=== PATIENT | male | born 1975 | race Caucasian/White ===

== ENCOUNTER 2021-09-10 07:08 | Observation (INO) | payer BC ==
[~2021-09-10] VITALS: Ht 182.9 cm; Wt 131.5 kg
[2021-09-10] MEDS ORDERED: IOPAMIDOL 370 MG/ML 100 ML INFUS..BTL INJ ONE (07:55)
[2021-09-10] MEDS ORDERED: ONDANSETRON HCL INJ 2MG/ML 2ML 2 MG/ML VIAL IV PRN ×2 (09:30→12:30)
[2021-09-10] MEDS ORDERED: ASPIRIN 325 MG TAB PO ONE (09:30)
[2021-09-10] MEDS ORDERED: ASPIRIN 81 MG CHEW TAB PO ONE (09:30)
[2021-09-10] MEDS ORDERED: ASPIRIN 325 MG TAB ONE (10:19)
[2021-09-10 12:10] VITALS: BP 139/87
[2021-09-10 12:18] VITALS: BP 139/87
[2021-09-10] MEDS ORDERED: DOCUSATE SODIUM 100 MG CAP PO PRN (12:30)
[2021-09-10] MEDS ORDERED: DIPHENHYDRAMINE HCL 25 MG CAP PO PRN (12:30)
[2021-09-10] MEDS ORDERED: DEXTROSE 50% SYRINGE 50 ML IV PRN (12:30)
[2021-09-10] MEDS ORDERED: SIMETHICONE 80 MG CHEW PO PRN (12:30)
[2021-09-10] MEDS ORDERED: BENZONATATE 100 MG CAP PO PRN (12:30)
[2021-09-10] MEDS ORDERED: POTASSIUM CHLORIDE 20 MEQ TAB CR PO PRN (12:30)
[2021-09-10] MEDS ORDERED: HYDRALAZINE HCL 20 MG/ML VIAL IV PRN (12:30)
[2021-09-10] MEDS ORDERED: ACETAMINOPHEN 325 MG TAB PO PRN (12:30)
[2021-09-10] MEDS ORDERED: LIDOCAINE 4% PATCH TP PRN (12:30)
[2021-09-10] MEDS ORDERED: ALBUTEROL/IPRATROPIUM 3 ML NEB NEB PRN (12:30)
[2021-09-10] MEDS ORDERED: MELATONIN 5 MG TABLET PO PRN (12:30)
[2021-09-10 13:06] VITALS: BP 139/87
[2021-09-10] MEDS ORDERED: REVATIO20 MG PO (14:01)
[2021-09-10] MEDS ORDERED: VITAJOY DAILY25 MCG PO (14:01)
[2021-09-10] MEDS ORDERED: METOPROLOL TART25 MG PO (14:01)
[2021-09-10] MEDS ORDERED: IMURAN50 MG PO (14:01)
[2021-09-10 15:42] VITALS: BP 122/82
[2021-09-10 16:47] LABS: CREATINE KINASE 364 IU/L (30-200)
[2021-09-10] MEDS ORDERED: ENOXAPARIN SOD INJ 40 MG/0.4 ML SYR SC SCH (17:00)
[2021-09-10] MEDS ORDERED: PANTOPRAZOLE SO40 MG PO (18:06)
[2021-09-10] MEDS ORDERED: FOLIC ACID0.4 MG PO (19:54)
[2021-09-10] MEDS ORDERED: POTASSIUM GLUCO99 MG PO (19:54)
[2021-09-10] MEDS ORDERED: MULTI-VITAMIN1 EACH PO (19:54)
[2021-09-10 20:00] VITALS: BP 122/82
[2021-09-10] MEDS ORDERED: SILDENAFIL CITRATE 20 MG TAB PO PRN (20:15)
[2021-09-10 20:26] VITALS: BP 120/70
[2021-09-10] MEDS ORDERED: POTASSIUM GLUCONATE PO SCH (21:00)
[2021-09-10] MEDS: AZATHIOPRINE 50 MG TAB PO SCH (21:31)
[2021-09-10] MEDS: METOPROLOL TARTRATE 25 MG TAB PO SCH (21:31)
[2021-09-11 00:37] VITALS: BP 114/82
[2021-09-11 01:03] LABS: CREATINE KINASE 281 IU/L (30-200)
[2021-09-11 04:44] VITALS: BP 101/69
[2021-09-11 04:52] LABS: BASOPHILS % 0.6 % (0.0-1.0); EOSINOPHILS # (AUTO) 0.1 (0.0-0.4); EOSINOPHILS % 1.9 % (0.0-6.0); HEMATOCRIT 41.5 % (38.2-49.6); HEMOGLOBIN 13.7 g/dL (14.0-18.0); LYMPHOCYTES # (AUTO) 1.7 (1.0-3.2); LYMPHOCYTES % 27.1 % (18.0-39.1); MEAN CORPUSCULAR VOLUME 87.7 fL (81-99); MONOCYTES # (AUTO) 0.6 (0.2-0.8); NEUTROPHILS # (AUTO) 3.8 (2.1-6.9); NEUTROPHILS % 61.1 % (38.7-80.0); PLATELET COUNT 250 x10e3/uL (140-360); RED BLOOD COUNT 4.73 x10e6/uL (4.3-5.7); RED CELL DISTRIBUTION WIDTH 13.6 % (11.7-14.4)
[2021-09-11 05:18] LABS: ANION GAP 12.7 mmol/L (8-16); CALCIUM 8.1 mg/dL (8.4-10.2); CHOL/HDL RATIO 4.2 (3.9-4.7); CREATININE, SERUM 0.64 mg/dL (0.72-1.25); PHOSPHORUS 3.2 MG/DL (2.3-4.7); POTASSIUM 3.7 mmol/L (3.5-5.1)
[2021-09-11 05:27] LABS: THYROID STIMULATING HORMONE 1.316 uIU/mL (0.350-4.940)
[2021-09-11] MEDS ORDERED: PANTOPRAZOLE SOD 40 MG TABEC PO SCH ×2 (07:30→09:00)
[2021-09-11 07:40] VITALS: BP 121/82
[2021-09-11 07:44] VITALS: BP 121/82
[2021-09-11] MEDS ORDERED: FOLIC ACID 1 MG TAB PO SCH (09:00)
[2021-09-11] MEDS ORDERED: ASPIRIN 325 MG TAB EC PO SCH (09:00)
[2021-09-11] MEDS ORDERED: CHOLECALCIFEROL 1,000 UNIT TAB PO SCH (09:00)
[2021-09-11] MEDS ORDERED: MULTIVITAMINS/MINERALS TAB PO SCH (09:00)
[2021-09-11] MEDS: AZATHIOPRINE 50 MG TAB PO SCH (09:57)
[2021-09-11] MEDS: METOPROLOL TARTRATE 25 MG TAB PO SCH (09:57)
[2021-09-11 10:11] LABS: CREATINE KINASE 265 IU/L (30-200)
[2021-09-11 11:46] VITALS: BP 131/95
== END 2021-09-11 12:46 | disposition home or self-care (01) ==
LOC: FSED 07:30 → ERHOLD 09:26 → MED/SURG 11:27
PROVIDERS: ADMIT Internal Medicine; ATTEND Internal Medicine
DX: R07.89 Other chest pain (principal); I10 Essential (primary) hypertension; M33.20 Polymyositis, organ involvement unspecified; E66.9 Obesity, unspecified; R22.2 Localized swelling, mass and lump, trunk; Z20.822 Contact with and (suspected) exposure to COVID-19; Z68.39 Body mass index [BMI] 39.0-39.9, adult
CPT/HCPCS: 36415 ×2; 71260; 80048; 80053; 80061; 82550 ×2; 82553 ×2; 83036; 83735; 84100; 84443; 84484 ×2; 85025 ×2; 93005; 93017; 93306; 96360; 96365; 99284; G0378 ×2; J1650; J7500; Q9967; S0164; U0002

== ENCOUNTER 2022-01-05 04:57 | Emergency (ER) | payer BC ==
[~2022-01-05] VITALS: Ht 182.9 cm; Wt 131.5 kg
[~2022-01-05 04:57] MED LIST: FOLIC ACID0.4 MG PO; IMURAN50 MG PO; METOPROLOL TART25 MG PO; MULTI-VITAMIN1 EACH PO; PANTOPRAZOLE SO40 MG PO; POTASSIUM GLUCO99 MG PO; REVATIO20 MG PO; VITAJOY DAILY25 MCG PO
[2022-01-05] MEDS ORDERED: ASPIRIN 81 MG CHEW TAB PO ONE (05:15)
[2022-01-05 05:27] LABS: BASOPHILS % 0.5 % (0.0-1.0); EOSINOPHILS # (AUTO) 0.1 (0.0-0.4); HEMATOCRIT 42.1 % (38.2-49.6); LYMPHOCYTES # (AUTO) 1.8 (1.0-3.2); LYMPHOCYTES % 26.4 % (18.0-39.1); MEAN CORPUSCULAR HEMOGLOBIN 29.4 pg (28-32); MEAN CORPUSCULAR HGB CONC 33.3 g/dL (31-35); MEAN CORPUSCULAR VOLUME 88.3 fL (81-99); MONOCYTES # (AUTO) 0.5 (0.2-0.8); MONOCYTES % 7.2 % (4.4-11.3); NEUTROPHILS # (AUTO) 4.2 (2.1-6.9); NEUTROPHILS % 63.6 % (38.7-80.0); PLATELET COUNT 277 x10e3/uL (140-360); RED BLOOD COUNT 4.77 x10e6/uL (4.3-5.7); RED CELL DISTRIBUTION WIDTH 13.1 % (11.7-14.4)
[2022-01-05 05:48] LABS: LIPASE 55 U/L (8-78)
[2022-01-05 05:52] LABS: ALBUMIN 3.7 g/dL (3.5-5.0); ALBUMIN/GLOBULIN RATIO 1.1 (0.8-2.0); ANION GAP 13.5 mmol/L (8-16); CALCIUM 8.6 mg/dL (8.4-10.2); CREATININE, SERUM 0.67 mg/dL (0.72-1.25); POTASSIUM 3.5 mmol/L (3.5-5.1)
== END 2022-01-05 07:46 | disposition home or self-care (01) ==
LOC: ER 05:02
DX: R07.9 Chest pain, unspecified (principal); I10 Essential (primary) hypertension; R06.00 Dyspnea, unspecified; M33.20 Polymyositis, organ involvement unspecified; Z79.899 Other long term (current) drug therapy
CPT/HCPCS: 36415; 71045; 80053; 83690; 84484; 85025; 93005; 99284

== ENCOUNTER 2022-01-06 04:29 | Emergency (ER) | payer BC ==
[~2022-01-06] VITALS: Ht 182.9 cm; Wt 131.5 kg
[2022-01-06 05:07] LABS: BASOPHILS % 0.4 % (0.0-1.0); EOSINOPHILS # (AUTO) 0.1 (0.0-0.4); EOSINOPHILS % 1.7 % (0.0-6.0); HEMATOCRIT 44.4 % (38.2-49.6); HEMOGLOBIN 14.7 g/dL (14.0-18.0); LYMPHOCYTES # (AUTO) 2.1 (1.0-3.2); LYMPHOCYTES % 30.1 % (18.0-39.1); MEAN CORPUSCULAR HEMOGLOBIN 29.6 pg (28-32); MEAN CORPUSCULAR HGB CONC 33.1 g/dL (31-35); MEAN CORPUSCULAR VOLUME 89.5 fL (81-99); MONOCYTES # (AUTO) 0.5 (0.2-0.8); MONOCYTES % 6.5 % (4.4-11.3); NEUTROPHILS # (AUTO) 4.2 (2.1-6.9); NEUTROPHILS % 60.9 % (38.7-80.0); PLATELET COUNT 338 x10e3/uL (140-360); RED BLOOD COUNT 4.96 x10e6/uL (4.3-5.7)
[2022-01-06 05:22] LABS: AMPHETAMINES SCREEN,URINE NEGATIVE (NEGATIVE); BENZODIAZEPINES SCREEN,URINE NEGATIVE (NEGATIVE); PHENCYCLIDINE SCREEN,URINE NEGATIVE (NEGATIVE)
[2022-01-06 05:27] LABS: ALANINE AMINOTRANSFERASE 24 IU/L (0-55); ALBUMIN 3.6 g/dL (3.5-5.0); ALKALINE PHOSPHATASE 70 IU/L (40-150); ANION GAP 11.8 mmol/L (8-16); BLOOD UREA NITROGEN 11 mg/dL (7-26); BUN/CREATININE RATIO 16 (6-25); CALCIUM 8.6 mg/dL (8.4-10.2); CARBON DIOXIDE 25 mmol/L (22-29); CHLORIDE 105 mmol/L (98-107); CREATINE KINASE 230 IU/L (30-200); CREATININE, SERUM 0.68 mg/dL (0.72-1.25); GLUCOSE 127 mg/dL (74-118); POTASSIUM 3.8 mmol/L (3.5-5.1); SODIUM 138 mmol/L (136-145)
[2022-01-06] MEDS ORDERED: IOPAMIDOL 370 MG/ML 100 ML INFUS..BTL INJ ONE (07:30)
== END 2022-01-06 07:38 | disposition home or self-care (01) ==
LOC: ER 04:37
DX: R07.89 Other chest pain (principal); I10 Essential (primary) hypertension; M33.20 Polymyositis, organ involvement unspecified; Z20.822 Contact with and (suspected) exposure to COVID-19; R94.31 Abnormal electrocardiogram [ECG] [EKG]
CPT/HCPCS: 0223U; 36415; 71045; 71260; 80053; 80307; 82550; 82553; 83690; 83880; 84484; 85025; 85379; 93005; 99284; Q9967